=== PATIENT | male | born 1945 | race African-American/Black ===

== ENCOUNTER 2022-06-15 04:00 | Day surgery (SDC) | payer OTHER ==
[2022-06-12 16:20] VITALS: BMI 30.3
[2022-06-15] MEDS ORDERED: KETAMINE HCL 500 MG/10 ML VIAL ONE (07:15)
[2022-06-15 09:14] VITALS: TEMP 97.3
[2022-06-15 09:48] VITALS: BP 140/70; PULSE 80; RESP 15
== END 2022-06-15 09:40 | disposition home or self-care (01) ==
LOC: JASU-ENDO 04:00
PROVIDERS: ATTEND Internal Medicine Gastroenterology
PROC: 0DBN8ZX Excision of Sigmoid Colon, Via Natural or Artificial Opening Endoscopic, Diagnostic (ICD-10-PCS; 2022-06-15)
PROC: 0DBL8ZX Excision of Transverse Colon, Via Natural or Artificial Opening Endoscopic, Diagnostic (ICD-10-PCS; principal; 2022-06-15 08:00)
DX: Z12.11 Encounter for screening for malignant neoplasm of colon (principal); D12.3 Benign neoplasm of transverse colon; K63.5 Polyp of colon; K57.30 Diverticulosis of large intestine without perforation or abscess without bleeding; K64.8 Other hemorrhoids
CPT/HCPCS: 82962; 88305-TC